=== PATIENT | female | born 1965 | race Caucasian/White ===

== ENCOUNTER 2024-07-15 13:15 | Observation (INO) | payer BC ==
[2024-07-15] MEDS: Ondansetron 4 MG/2 ML SDV IVPUSH ONE (13:24)
[2024-07-15] MEDS: Meclizine 12.5 MG Tab PO ONE (13:28)
[2024-07-15] MEDS: Sodium Chloride 0.9% 1,000 ML IV ONE (13:29)
[2024-07-15 13:48] LABS: BASOPHILS ABSOLUTE AUTO 0.04 10^3/uL (0.00-0.50); BASOPHILS PERCENT AUTO 0.5 % (0-1); EOSINOPHILS ABSOLUTE AUTO 0.19 10^3/uL (0.00-1.50); EOSINOPHILS PERCENT AUTO 2.5 % (0-6); HEMATOCRIT 42.1 % (37.0-47.0); HEMOGLOBIN 13.6 g/dL (12.0-16.0); IMMATURE GRAN ABSOLUTE AUTO 0.01 10^3/uL (0.00-0.49); IMMATURE GRAN PERCENT AUTO 0.1 % (0.0-4.9); LYMPHOCYTES ABSOLUTE AUTO 3.31 10^3/uL (0.60-5.00); MEAN CORPUSCULAR HEMOGLOBIN 27.2 pg (27.0-32.0); MEAN CORPUSCULAR HGB CONC 32.3 g/dL (32.0-36.0); MEAN CORPUSCULAR VOLUME 84.2 fL (83.0-97.0); MONOCYTES ABSOLUTE AUTO 0.47 10^3/uL (0.00-1.50); MONOCYTES PERCENT AUTO 6.3 % (0-10); NEUTROPHILS PERCENT AUTO 46.6 % (41-71); PLATELET COUNT,PLT 188 10^3/uL (150-400); WHITE BLOOD CELL COUNT,WBC 7.5 10^3/uL (4.0-11.0)
[2024-07-15 14:04] LABS: ALANINE AMINOTRANSFERASE,ALT 20 U/L (12-78); ALKALINE PHOSPHATASE 132 U/L (46-116); ASPARTATE AMNIOTRANSFERASE,AST 14 U/L (15-37); BILIRUBIN TOTAL 0.3 mg/dL (0.0-1.0); BLOOD UREA NITROGEN,BUN 11 mg/dL (7-18); CALCIUM 9.5 mg/dL (8.4-10.1); CARBON DIOXIDE,CO2 23 mmol/L (21-32); CHLORIDE,CL 101 mEq/L (98-106); CREATININE 0.7 mg/dL (0.6-1.0); GLUCOSE RANDOM 111 mg/dL (75-99); MAGNESIUM 1.7 mg/dL (1.8-2.4); SODIUM,NA 140 mEq/L (136-145)
[2024-07-15 14:05] LABS: C-REACTIVE PROTEIN < 0.50 mg/dL (<=0.50); ESTIMATED GFR 100 mL/min (>=60); POTASSIUM,K 2.8 mEq/L (3.5-5.0)
[2024-07-15] MEDS: Ondansetron 4 MG/2 ML SDV IVPUSH STA (14:45)
[2024-07-15] MEDS: Sodium Chloride 0.9% 1,000 ML IV SCH (14:57)
[2024-07-15] MEDS: Potassium Chloride Riders 20 MEQ in Premix Bag 1 BAG IV SCH (14:58)
[2024-07-15] MEDS ORDERED: Acetaminophen 325 MG Tab PO PRN (16:04)
[2024-07-15] MEDS ORDERED: Ondansetron 4 MG/2 ML SDV IV PRN (16:04)
[2024-07-15] MEDS: Meclizine 12.5 MG Tab PO PRN (18:05)
[2024-07-15] MEDS: Ondansetron 4 MG Tab.DIS PO PRN (19:42)
[2024-07-16 07:40] LABS: BASOPHILS ABSOLUTE AUTO 0.01 10^3/uL (0.00-0.50); BASOPHILS PERCENT AUTO 0.1 % (0-1); EOSINOPHILS ABSOLUTE AUTO 0.05 10^3/uL (0.00-1.50); EOSINOPHILS PERCENT AUTO 0.6 % (0-6); HEMATOCRIT 40.4 % (37.0-47.0); IMMATURE GRAN ABSOLUTE AUTO 0.02 10^3/uL (0.00-0.49); IMMATURE GRAN PERCENT AUTO 0.3 % (0.0-4.9); LYMPHOCYTES ABSOLUTE AUTO 1.78 10^3/uL (0.60-5.00); LYMPHOCYTES PERCENT AUTO 22.4 % (24-44); MEAN CORPUSCULAR HEMOGLOBIN 27.5 pg (27.0-32.0); MEAN CORPUSCULAR HGB CONC 32.2 g/dL (32.0-36.0); MEAN CORPUSCULAR VOLUME 85.6 fL (83.0-97.0); MONOCYTES ABSOLUTE AUTO 0.52 10^3/uL (0.00-1.50); MONOCYTES PERCENT AUTO 6.5 % (0-10); NEUTROPHILS ABSOLUTE AUTO 5.58 x10^3/uL (1.80-8.00); NEUTROPHILS PERCENT AUTO 70.1 % (41-71); PLATELET COUNT,PLT 192 10^3/uL (150-400); RED BLOOD CELL COUNT 4.72 x10^6/uL (4.00-5.50)
[2024-07-16 08:14] VITALS: BP 101/56; PULSE 83
[2024-07-16 08:17] LABS: CALCIUM 8.8 mg/dL (8.4-10.1); CREATININE 0.5 mg/dL (0.6-1.0); EST CRCL DRUG DOSING (CG) 100.22 mL/min; MAGNESIUM 1.7 mg/dL (1.8-2.4); POTASSIUM,K 3.7 mEq/L (3.5-5.0)
[2024-07-16] MEDS: Ondansetron 4 MG Tab.DIS PO ONE (10:41)
[2024-07-16] MEDS: Take Home: Ondansetron 4 MG Tab.DIS, 2 Tab Pack PO ONE (10:41)
[2024-07-16] MEDS: Take Home: Meclizine 12.5 MG Tab, 4 Tab Pack PO ONE (10:42)
== END 2024-07-16 12:58 | disposition home or self-care (01) ==
LOC: CC.ED 13:15 → CC.MS 15:47 → UNDOADMOB 15:53 → CC.MS 15:53 → UNDODISOB 07-16 12:58
PROVIDERS: ADMIT Nurse Practitioner Family; ATTEND Nurse Practitioner Family
DX: R42 Dizziness and giddiness (principal); E87.6 Hypokalemia; R11.2 Nausea with vomiting, unspecified; Z88.2 Allergy status to sulfonamides; Z91.013 Allergy to seafood
CPT/HCPCS: 36415; 70450; 71045; 80048; 80053; 83735; 84484; 85025; 86140; 93005; 96361; 96365; 96366; 96375; 96376; 99223; 99238; 99285-25; A9270-GY; G0378; J2405; J3480; J7030